=== PATIENT | male | born 1955 | race Caucasian/White ===

== ENCOUNTER 2023-02-22 22:19 | Inpatient (IN) | payer MEDICARE, OTHER ==
[~2023-02-22] VITALS: Ht 167.6 cm; Wt 114.5 kg
--- NOTE | 2023-02-22 22:35 | NUR ---
[facility] PT HAS AMS X3 DAYS. PLACED COMFORTABLY IN BED, VITALS CHECKED.
--- NOTE | 2023-02-22 22:48 | NUR ---
EKG DONE AT BEDSIDE
--- NOTE | 2023-02-22 22:48 | NUR ---
URINE COLLECTED AND SENT TO LAB
--- NOTE | 2023-02-22 22:53 | NUR ---
COVID SWAB COLLECTED AND SENT TO LAB
--- NOTE | 2023-02-22 22:53 | NUR ---
BLOOD WORK COLLECTED AND SENT TO LAB
--- NOTE | 2023-02-22 23:08 | NUR ---
KG=[id number]
--- NOTE | 2023-02-22 23:09 | NUR ---
PT TO CT, ACCOMPANIED BY TECH
[2023-02-22 23:11] LABS: BASOPHILS % (AUTO) 0.5 % (0.0-2.0); EOSINOPHILS % (AUTO) 1.2 % (0.0-6.0); HEMATOCRIT 42 % (39-51); HEMOGLOBIN 13.6 g/dL (13.5-17.5); LYMPHOCYTES # (AUTO) 2.1 K/uL (0.8-4.8); LYMPHOCYTES % (AUTO) 26.5 % (20.0-44.0); MEAN CORPUSCULAR HGB CONC 32 g/dl (31.0-36.0); MEAN CORPUSCULAR VOLUME 89 fL (80-96); MONOCYTES # (AUTO) 0.8 K/uL (0.1-1.30); MONOCYTES % (AUTO) 9.9 % (2.0-12.0); NEUTROPHILS # (AUTO) 4.8 K/uL (1.8-8.9); NEUTROPHILS % (AUTO) 61.9 % (43.0-81.0); PLATELET COUNT (AUTO) 226 K/uL (150-450); RED BLOOD CELL COUNT(AUTO) 4.75 MIL/uL (4.5-6.0); WHITE BLOOD COUNT (AUTO) 7.8 K/uL (4.3-11.0)
--- NOTE | 2023-02-22 23:20 | NUR ---
PT RETURNED FROM CT
[2023-02-22 23:45] LABS: BILIRUBIN,URINE NEGATIVE (NEGATIVE); COLOR,URINE YELLOW (YELLOW); LEUKOCYTE ESTERASE ,URINE 1+ (NEGATIVE); NITRITE, URINE POSITIVE (NEGATIVE); PROTEIN,URINE NEGATIVE (NEGATIVE); UGLUCOSE NEGATIVE (NEGATIVE); UROBILINOGEN,URINE 0.2 EU/dL (0.2)
[2023-02-22 23:52] LABS: BACTERIA,URINE Few /HPF (None Seen); SQUAMOUS EPITHELIAL CELL,UR MODERATE /HPF (None Seen)
[2023-02-22 23:53] LABS: SERUM AMMONIA 19 umol/L (11-32)
[2023-02-22 23:54] LABS: CALCIUM, SERUM 9.1 mg/dL (8.5-10.1); CARBON DIOXIDE 30 mmol/L (21-32); CHLORIDE 101 mmol/L (98-107); GLUCOSE 180 mg/dL (74-106); POTASSIUM 4.3 mmol/L (3.5-5.1); SODIUM SERUM 137 mmol/L (136-145); UREA NITROGEN, BLOOD 11 mg/dL (7-18)
[2023-02-22 23:58] LABS: ACETAMINOPHEN 0 ug/ml (10-30); ALANINE AMINOTRANSFERASE 27 U/L (12-78); ALBUMIN 3.4 g/dL (3.4-5.0); ALCOHOL, BLOOD < 3 mg/dL (0-0); ALKALINE PHOSPHATASE 47 U/L (46-116); ASPARTATE AMINOTRANSFERASE 13 U/L (15-37); BILIRUBIN,DIRECT 0.1 mg/dL (0.0-0.2); BILIRUBIN,TOTAL 0.3 mg/dL (0.2-1.0); TOTAL PROTEIN, SERUM 7.4 g/dL (6.4-8.2)
[2023-02-23] MEDS ORDERED: AZITHROMYCIN 500 MG in IV D5W 250 ML IV ONE ×2
[2023-02-23] MEDS ORDERED: CEFTRIAXONE 1GM BAG (ER ONLY) 1 GM/50 ML PIGGYBACK IV ONE
--- NOTE | 2023-02-23 00:05 | NUR ---
BLOOD CX COLLECTED AND SENT TO LAB
[2023-02-23] MEDS ORDERED: CEFTRIAXONE 1GM BAG (ER ONLY) 50 ML IV ONE (00:19)
[2023-02-23] MEDS ORDERED: AZITHROMYCIN 500 MG VIAL ONE ×2 (00:19→00:42)
[2023-02-23] MEDS ORDERED: ONDANSETRON HCL/PF 4 MG/2 ML VIAL IVP PRN (00:30)
[2023-02-23] MEDS ORDERED: ACETAMINOPHEN 325 MG TABLET PO PRN (00:30)
--- NOTE | 2023-02-23 01:17 | NUR ---
[facility]
--- NOTE | 2023-02-23 03:14 | NUR ---
120 BED 2
[2023-02-23] MEDS ORDERED: ENOXAPARIN SODIUM 40 MG/0.4 ML DISP.SYRIN SQ SCH (03:36)
--- NOTE | 2023-02-23 03:53 | NUR ---
REPORT GIVEN TO NII VALDEZ FOR BRIANA
[2023-02-23 04:00] VITALS: BP 130/76
--- NOTE | 2023-02-23 04:15 | NUR ---
ADMISSION NOTES ADMITTED A 67-YEAR-OLD MAN, TRANSPORTED VIA GURNEY BY 3 ED PERSONNEL. PATIENT IS AAO X2-3, ON ROOM AIR, NO SOB/DISTRESS NOTED. DENIES PAIN AT THIS TIME. ON TELE MONITOR SHOWING SINUS RHYTHM. IV ACCESS ON RAC #20G, S/L, INTACT AND PATENT. KAN CATHETER IN PLACE, DRAINING CLEAR YELLOW URINE. BODY ASSESSMENT DONE, SKIN IS INTACT. BELONGINGS CHECKED AND LIST PLACED ON CHART. VITAL SIGNS FOLLOWS: TEMP 97.6, HR 62, RR 18, O2 SAT 98%, BP 130/76. SAFETY MEASURES IN PLACE: BED LOCKED AND IN LOWEST POSITION, SIDE RAILS UP X3, BED ALARM ON, CALL LIGHT WITHIN REACH.
[2023-02-23] MEDS: IV NS 0.9% 1,000 ML IV PRN (04:30)
--- NOTE | 2023-02-23 06:00 | NUR ---
RN NOTE UNABLE TO OBTAIN CODE STATUS FROM THE PATIENT DUE TO AMS. CALLED [facility] TO OBTAIN PATIENT'S CODE STATUS AND SAID THAT THE PATIENT IS FULL CODE.
--- NOTE | 2023-02-23 06:32 | NUR ---
RN CLOSING NOTES PATIENT IN BED, ASLEEP BUT AROUSABLE. AAO X2-3, ON ROOM AIR, NO SOB/DISTRESS NOTED. DENIES PAIN AT THIS TIME. ON TELE MONITOR SHOWING SINUS RHYTHM. IV ACCESS ON RAC #20G, INTACT AND PATENT, NS RUNNING AT 75ML/HR. KAN CATHETER IN PLACE, DRAINING CLEAR YELLOW URINE, UO IS 1400 ML. SAFETY MEASURES IN PLACE: BED LOCKED AND IN LOWEST POSITION, SIDE RAILS UP X3, BED ALARM ON, CALL LIGHT WITHIN REACH. ALL DUE MEDS GIVEN, ALL NEEDS ATTENDED. WILL ENDORSE TO ONCOMING NURSE FOR BRIANA.
[2023-02-23 07:15] LABS: BASOPHILS % (AUTO) 0.4 % (0.0-2.0); EOSINOPHILS % (AUTO) 1.3 % (0.0-6.0); HEMATOCRIT 41 % (39-51); HEMOGLOBIN 13.8 g/dL (13.5-17.5); LYMPHOCYTES # (AUTO) 1.9 K/uL (0.8-4.8); LYMPHOCYTES % (AUTO) 26.4 % (20.0-44.0); MEAN CORPUSCULAR HGB CONC 34 g/dl (31.0-36.0); MEAN CORPUSCULAR VOLUME 88 fL (80-96); MONOCYTES # (AUTO) 0.6 K/uL (0.1-1.30); MONOCYTES % (AUTO) 8.8 % (2.0-12.0); NEUTROPHILS # (AUTO) 4.5 K/uL (1.8-8.9); NEUTROPHILS % (AUTO) 63.1 % (43.0-81.0); PLATELET COUNT (AUTO) 209 K/uL (150-450); RED BLOOD CELL COUNT(AUTO) 4.66 MIL/uL (4.5-6.0); WHITE BLOOD COUNT (AUTO) 7.2 K/uL (4.3-11.0)
--- NOTE | 2023-02-23 07:29 | NUR ---
LARD REFINER OPENING NOTE PATIENT IN BED, ASLEEP BUT EASILY AROUSABLE. AAO X2-3, ON ROOM AIR, NO SOB/DISTRESS NOTED AT THIS TIME. ON TELE MONITOR SHOWING SINUS RHYTHM 58. IV ACCESS ON RAC #20G, INTACT AND PATENT, NS RUNNING AT 75ML/HR. KAN CATHETER IN PLACE, DRAINING CLEAR YELLOW URINE, . ALL SAFETY MEASURES IN PLACE: BED LOCKED AND IN LOWEST POSITION, SIDE RAILS UP X3, BED ALARM ON, CALL LIGHT WITHIN REACH
[2023-02-23 07:53] LABS: CALCIUM, SERUM 9.3 mg/dL (8.5-10.1); CREATININE 0.9 mg/dL (0.6-1.3); MAGNESIUM 2.1 mg/dL (1.8-2.4); PHOSPHORUS 3.6 mg/dL (2.5-4.9); POTASSIUM 4.6 mmol/L (3.5-5.1)
[2023-02-23 08:00] VITALS: BP 130/74
[2023-02-23] MEDS ORDERED: VANCOMYCIN 1.5 GM in IV D5W 500ml IV ONE (09:00)
[2023-02-23] MEDS ORDERED: CEFEPIME 1 GM in IV D5W 50 ML IV SCH (09:00)
--- NOTE | 2023-02-23 09:41 | NUR ---
RN NOTE NOTIFIED ADEEL BATES THAT PT HAS ALLERGIES TO PENCILLIN, BUT WAS GIVEN ROCEPHIN IN THE ED. ADEEL BATES SAID PT TOLERATED IV MEDICATION AND TO WATCH FOR REACTION. NOTIFIED PHARMACY IF VANOCMYCIN WAS OKAY TO GIVE. PER PHARMACY OKAY TO GIVE
[2023-02-23] MEDS ORDERED: FAMOTIDINE/PF INJ 20 MG/2 ML VIAL IV SCH (11:00)
[2023-02-23] MEDS ORDERED: DIVA-78 PO (13:05)
[2023-02-23] MEDS ORDERED: HYDR28.32 TP (13:05)
[2023-02-23] MEDS ORDERED: SIMV-49 PO (13:05)
[2023-02-23] MEDS ORDERED: AMLO-212 PO (13:05)
[2023-02-23] MEDS ORDERED: CHOL100043 PO (13:05)
[2023-02-23] MEDS ORDERED: CITA20TA16 PO (13:05)
[2023-02-23] MEDS ORDERED: MULT-447 PO (13:05)
[2023-02-23] MEDS ORDERED: MAGN400O6 PO (13:05)
[2023-02-23] MEDS ORDERED: FOLI0.4T6 PO (13:05)
[2023-02-23] MEDS ORDERED: TRAZ-182 PO (13:05)
[2023-02-23] MEDS ORDERED: ASPI-1420 PO (13:05)
[2023-02-23] MEDS: CEFEPIME 2 GM in IV D5W 100 ML IV SCH ×2 (13:06→20:10)
[2023-02-23 16:00] VITALS: BP 117/63
--- NOTE | 2023-02-23 19:30 | NUR ---
VETERINARIAN POULTRY OPENING NOTE RECEIVED PATIENT IN BED, AWAKE, A/O X 2-3, ABLE TO VERBALIZE NEEDS. CURRENTLY ON ROOM AIR, TOLERATING WELL, SATING @ 97%. NO S/SX OF ACUTE RESPI DISTRESS NOTED AT THIS TIME. NO SOB, BREATHING IS EVEN AND UNLABORED. ON TELE MONITOR SHOWING SINUS RHYTHM WITH HR IN 70s. IV ACCESS ON RAC #20G, INTACT AND PATENT, RUNNING NS AT 75ML/HR. KAN CATHETER NOTED, DRAINING CLEAR YELLOW URINE BY GRAVITY. ALL SAFETY MEASURES IN PLACE: BED LOCKED AND IN LOWEST POSITION, SIDE RAILS UP X3, BED ALARM ON, CALL LIGHT WITHIN REACH. WILL CONTINUE TO MONITOR PT.
--- NOTE | 2023-02-23 19:35 | NUR ---
UNDERTAKER HELPER CLOSING NOTE PATIENT IN BED, ASLEEP BUT EASILY AROUSABLE. AAO X2-3, ON ROOM AIR TOLERATING AT 96%. NO SIGNS OF PAIN OR DISCOMFORT NOTED AT THIS TIME. ON TELE MONITOR SHOWING SINUS RHYTHM 58. IV ACCESS ON RAC #20G, INTACT AND PATENT. , NS RUNNING AT 75ML/HR. KAN CATHETER IN PLACE, DRAINING CLEAR YELLOW URINE OUTPUT.. ALL SAFETY MEASURES IN PLACE: BED LOCKED AND IN LOWEST POSITION, SIDE RAILS UP X3, BED ALARM ON, CALL LIGHT WITHIN REACH.ENDORSED TO REPAIRER SHOE STICKS RN FOR CONTUITY OF CARE
[2023-02-23 20:00] VITALS: BP 129/68
[2023-02-23] MEDS: VANCOMYCIN 1.25 GM in IV D5W 250 ML IV SCH (20:44)
--- NOTE | 2023-02-23 21:48 | NUR ---
RN NOTE RECEIVED REPORT FROM LAB FOR BLOOD CX: GRAM POSITIVE COCCI IN CLUSTERS SEEN ON GRAM STAIN. PT CURRENTLY ON VANCO. POLLUTION CONTROL TECHNICIAN ANURADHA NOTIFIED.
[2023-02-23] MEDS ORDERED: AZITHROMYCIN 500 MG in IV D5W 250 ML IV SCH (22:00)
[2023-02-23] MEDS ORDERED: CEFTRIAXONE 1 G in IV D5W 50 ML IV SCH (22:00)
[2023-02-24] VITALS (7 sets, daily range): BP systolic 115–138; BP diastolic 61–93
[2023-02-24] MEDS: IV NS 0.9% 1,000 ML IV PRN ×2 (03:41→19:48)
[2023-02-24] MEDS: CEFEPIME 2 GM in IV D5W 100 ML IV SCH ×3 (04:09→20:12)
--- NOTE | 2023-02-24 06:24 | NUR ---
CLIENT SERVICE REPRESENTATIVE CLOSING NOTE NO SIGNIFICANT CHANGE T/O THE NIGHT. PT IN STABLE CONDITION. ALL DUE MEDS GIVEN. ALL NEEDS MET. TURNED AND REPOSITIONED. WILL ENDORSE TO AM SHIFT NURSE FOR BRIANA.
[2023-02-24 07:04] LABS: BASOPHILS % (AUTO) 0.5 % (0.0-2.0); EOSINOPHILS % (AUTO) 1.7 % (0.0-6.0); HEMATOCRIT 40 % (39-51); HEMOGLOBIN 13.1 g/dL (13.5-17.5); LYMPHOCYTES # (AUTO) 1.5 K/uL (0.8-4.8); LYMPHOCYTES % (AUTO) 19.1 % (20.0-44.0); MEAN CORPUSCULAR HGB CONC 33 g/dl (31.0-36.0); MEAN CORPUSCULAR VOLUME 89 fL (80-96); MONOCYTES # (AUTO) 0.9 K/uL (0.1-1.30); MONOCYTES % (AUTO) 10.9 % (2.0-12.0); NEUTROPHILS # (AUTO) 5.4 K/uL (1.8-8.9); NEUTROPHILS % (AUTO) 67.8 % (43.0-81.0); PLATELET COUNT (AUTO) 197 K/uL (150-450); RED BLOOD CELL COUNT(AUTO) 4.49 MIL/uL (4.5-6.0)
[2023-02-24 07:43] LABS: CALCIUM, SERUM 8.8 mg/dL (8.5-10.1); MAGNESIUM 1.8 mg/dL (1.8-2.4); PHOSPHORUS 3.6 mg/dL (2.5-4.9); POTASSIUM 4.6 mmol/L (3.5-5.1)
--- NOTE | 2023-02-24 07:49 | NUR ---
PATIENT ACCESS REGISTRAR OPENING PATIENT IN BED, ASLEEP BUT EASILY AROUSABLE. AAO X2-3, ON ROOM AIR TOLERATING ABOVE 92%. NO SIGNS OF PAIN OR DISCOMFORT NOTED AT THIS TIME. ON TELE MONITOR SHOWING SINUS RHYTHM 68. IV ACCESS ON RAC #20G, INTACT AND PATENT. , NS RUNNING AT 75ML/HR. KAN CATHETER IN PLACE, DRAINING CLEAR YELLOW URINE OUTPUT.ALL SAFETY MEASURES IN PLACE: BED LOCKED AND IN LOWEST POSITION, SIDE RAILS UP X3, BED ALARM ON, CALL LIGHT WITHIN REACH.
[2023-02-24] MEDS: VANCOMYCIN 1.25 GM in IV D5W 250 ML IV SCH ×2 (08:19→20:38)
[2023-02-24] MEDS: ENOXAPARIN SODIUM 40 MG/0.4 ML DISP.SYRIN SQ SCH (08:28)
[2023-02-24] MEDS ORDERED: ENOXAPARIN SODIUM 40 MG/0.4 ML DISP.SYRIN SQ SCH (09:00)
[2023-02-24] MEDS: DIVALPROEX SODIUM 500 MG TABLET.DR PO SCH ×2 (11:25→16:05)
[2023-02-24] MEDS: CHOLECALCIFEROL 1,000 UNIT TABLET (VIT D3) PO SCH (11:25)
[2023-02-24] MEDS: ASPIRIN EC 81 MG TABLET.DR PO SCH (11:25)
[2023-02-24] MEDS: AMLODIPINE BESYLATE 5 MG TABLET PO SCH (11:25)
[2023-02-24] MEDS: HYDROCORTISONE 1% CREAM 28.35 GM TUBE TP SCH (16:06)
--- NOTE | 2023-02-24 19:00 | NUR ---
NUCLEAR POWERPLANT MECHANIC HELPER CLOSING NOTE PATIENT IN BED, ASLEEP BUT EASILY AROUSABLE. AAO X2-3, ON ROOM AIR TOLERATING AT 97%. NO SIGNS OF PAIN OR DISCOMFORT NOTED AT THIS TIME. ON TELE MONITOR SHOWING SINUS RHYTM 78. IV ACCESS ON RAC #20G, INTACT AND PATENT, NS RUNNING AT 75ML/HR. KAN CATHETER IN PLACE, DRAINING CLEAR YELLOW URINE OUTPUT.PT AMBULATORY WITH STANDYBY ASSISTANCE. ALL SAFETY MEASURES IN PLACE: BED LOCKED AND IN LOWEST POSITION, SIDE RAILS UP X3, BED ALARM ON, CALL LIGHT WITHIN REACH.ENDORSED TO SUPERVISOR PAINT ROLLER COVERS RN FOR CONTUITY OF CARE
--- NOTE | 2023-02-24 19:30 | NUR ---
GREENHOUSE WORKER OPENING NOTE RECEIVED PATIENT IN BED, AWAKE, A/O X 3, ABLE TO VERBALIZE NEEDS. CURRENTLY ON ROOM AIR, TOLERATING WELL, SATING @ 98%. NO S/SX OF ACUTE RESPI DISTRESS NOTED AT THIS TIME. NO SOB, BREATHING IS EVEN AND UNLABORED. ON TELE MONITOR SHOWING SINUS RHYTHM WITH HR IN 70s. IV ACCESS ON RAC #20G, INTACT AND PATENT, RUNNING NS AT 75ML/HR. KAN CATHETER NOTED, DRAINING YELLOW URINE BY GRAVITY. ALL SAFETY MEASURES IN PLACE: BED LOCKED AND IN LOWEST POSITION, SIDE RAILS UP X3, BED ALARM ON, CALL LIGHT WITHIN REACH. WILL CONTINUE TO MONITOR PT.
[2023-02-24] MEDS: SIMVASTATIN 20 MG TABLET PO SCH (21:20)
[2023-02-24] MEDS: TRAZODONE 50 MG TABLET PO SCH (21:20)
[2023-02-25] VITALS: BP 122/68
[2023-02-25 04:00] VITALS: BP 140/73
[2023-02-25] MEDS: CEFEPIME 2 GM in IV D5W 100 ML IV SCH ×3 (04:23→20:03)
[2023-02-25 06:46] LABS: BASOPHILS # (AUTO) 0.1 K/uL (0.0-0.2); BASOPHILS % (AUTO) 0.6 % (0.0-2.0); EOSINOPHILS % (AUTO) 1.5 % (0.0-6.0); HEMATOCRIT 43 % (39-51); HEMOGLOBIN 13.8 g/dL (13.5-17.5); LYMPHOCYTES # (AUTO) 1.7 K/uL (0.8-4.8); LYMPHOCYTES % (AUTO) 19.7 % (20.0-44.0); MEAN CORPUSCULAR HGB CONC 32 g/dl (31.0-36.0); MEAN CORPUSCULAR VOLUME 91 fL (80-96); MONOCYTES # (AUTO) 1.1 K/uL (0.1-1.30); MONOCYTES % (AUTO) 12.1 % (2.0-12.0); NEUTROPHILS # (AUTO) 5.7 K/uL (1.8-8.9); NEUTROPHILS % (AUTO) 66.1 % (43.0-81.0); PLATELET COUNT (AUTO) 176 K/uL (150-450); RED BLOOD CELL COUNT(AUTO) 4.72 MIL/uL (4.5-6.0); WHITE BLOOD COUNT (AUTO) 8.7 K/uL (4.3-11.0)
--- NOTE | 2023-02-25 07:18 | NUR ---
EYELET PUNCH OPERATOR OPENING NOTES RECEIVED PATIENT SLEEPING IN BED, ON ROOM AIR, NO S/S OF RESPIRATORY DISTRESS. A/Ox2-3, ABLE TO MAKE NEEDS KNOWN. ON TELE MONITORING SHOWING SINUS RHYTHM, HR 68. NO S/S OF CARDIAC DISTRESS. IV ACCESS RAC #18 RUNNING NS @75 ML/HR. INTACT AND PATENT. PATIENT HAS KAN CATH DRAINING YELLOW URINE, AMB WITH ASSIST. SKIN INTACT. SAFETY MEASURES IN PLACE: BED LOCKED AND IN LOWEST POSITION, HOB ELEVATED, CALL LIGHT WITHIN REACH, SIDE RAILS UPx2. WILL CONTINUE TO MONITOR.
[2023-02-25 07:20] LABS: CALCIUM, SERUM 9.1 mg/dL (8.5-10.1); CREATININE 0.8 mg/dL (0.6-1.3); PHOSPHORUS 3.8 mg/dL (2.5-4.9); POTASSIUM 4.8 mmol/L (3.5-5.1)
[2023-02-25 08:00] VITALS: BP 123/79
[2023-02-25] MEDS: CHOLECALCIFEROL 1,000 UNIT TABLET (VIT D3) PO SCH (09:09)
[2023-02-25] MEDS: AMLODIPINE BESYLATE 5 MG TABLET PO SCH (09:09)
[2023-02-25] MEDS: DIVALPROEX SODIUM 500 MG TABLET.DR PO SCH ×2 (09:09→16:15)
[2023-02-25] MEDS: VANCOMYCIN 1.25 GM in IV D5W 250 ML IV SCH ×2 (09:09→20:48)
[2023-02-25] MEDS: CITALOPRAM HYDROBROMIDE 20 MG TABLET PO SCH (09:09)
[2023-02-25] MEDS: ASPIRIN EC 81 MG TABLET.DR PO SCH (09:09)
[2023-02-25] MEDS: HYDROCORTISONE 1% CREAM 28.35 GM TUBE TP SCH ×2 (09:18→16:17)
[2023-02-25] MEDS: ENOXAPARIN SODIUM 40 MG/0.4 ML DISP.SYRIN SQ SCH (09:22)
[2023-02-25] MEDS: MULTIVIT W/MINERALS 1 TAB TABLET PO SCH (10:39)
[2023-02-25] MEDS: FOLIC ACID 1 MG TABLET PO SCH (10:39)
[2023-02-25] MEDS: IV NS 0.9% 1,000 ML IV PRN (11:32)
[2023-02-25 12:00] VITALS: BP 127/67
[2023-02-25 16:00] VITALS: BP 122/62
--- NOTE | 2023-02-25 18:51 | NUR ---
ENVIRONMENTAL TECHNICAL OFFICER CLOSING NOTES PATIENT SLEEPING IN BED, STABLE ON ROOM AIR, NO S/S OF RESPIRATORY DISTRESS. A/Ox2-3, ABLE TO MAKE NEEDS KNOWN. ON TELE MONITORING SHOWING SINUS RHYTHM, HR 72. NO S/S OF CARDIAC DISTRESS. IV ACCESS RAC #18 RUNNING NS @75 ML/HR. INTACT AND PATENT. PATIENT HAS KAN CATH DRAINING YELLOW URINE, AMB WITH ASSIST. SKIN INTACT. SAFETY MEASURES MAINTAINED: BED LOCKED AND IN LOWEST POSITION, HOB ELEVATED, CALL LIGHT WITHIN REACH, SIDE RAILS UPx2. WILL ENDORSE TO NEXT SHIFT ANY BRIANA.
--- NOTE | 2023-02-25 19:20 | NUR ---
BUDGET CONSULTANT OPENING NOTE PATIENT IS SLEEPING IN BED, EASILY BEING AROUSED. HE IS ALERT AND ORIENTED, AO X 2-3. HE IS ON ROOM AIR, TOLERATED WELL. NO S/S OF RESPIRATORY DISTRESS OR SOB. PT IS ABLE TO MAKE NEEDS KNOWN. HE IS ON TELE MONITORING; HIS HEART RHYTHM IS SINUS RHYTHM WITH ARRHYTHMIA; HIS HEART RATE IS AT 60S. IV ACCESS IS AT HIS R AC, #18G, RUNNING NS @75 ML/HR. IV SITE IS INTACT AND PATENT. PATIENT HAS KAN CATH DRAINING YELLOW URINE FREELY. PT DENIES OF HAVING PAIN AT THIS MOMENT. SAFETY MEASURES ARE IN PLACED: BED LOCKED AND IN LOWEST POSITION; TABLE AND CALL LIGHT ARE WITHIN REACH; SIDE RAILS UP x 2. WILL CONTINUE MONITORING THE PT AND PROVIDE THE CARE PT NEEDS.
[2023-02-25 20:00] VITALS: BP 126/72
[2023-02-25] MEDS: TRAZODONE 50 MG TABLET PO SCH (22:51)
[2023-02-25] MEDS: SIMVASTATIN 20 MG TABLET PO SCH (22:51)
[2023-02-26] VITALS: BP 118/76
[2023-02-26 04:00] VITALS: BP 134/74
[2023-02-26] MEDS: CEFEPIME 2 GM in IV D5W 100 ML IV SCH ×3 (04:14→22:06)
[2023-02-26] MEDS: IV NS 0.9% 1,000 ML IV PRN (04:14)
--- NOTE | 2023-02-26 06:39 | NUR ---
ELECTRONIC DATA INTERCHANGE SPECIALIST CLOSING NOTE PATIENT IS SLEEPING IN BED, EASILY BEING AROUSED. HE IS ALERT AND ORIENTED, AO X 2-3. HE IS ON ROOM AIR, TOLERATED WELL. NO S/S OF RESPIRATORY DISTRESS OR SOB. PT IS ABLE TO MAKE NEEDS KNOWN. HE IS ON TELE MONITORING; HIS HEART RHYTHM IS SINUS RHYTHM WITH ARRHYTHMIA; HIS HEART RATE IS AT 60S. IV ACCESS IS AT HIS R AC, #18G, RUNNING NS @75 ML/HR. IV SITE IS INTACT AND PATENT. PATIENT HAS KAN CATH DRAINING YELLOW URINE FREELY. PT DENIES OF HAVING PAIN AT THIS MOMENT. SAFETY MEASURES ARE IN PLACED: BED LOCKED AND IN LOWEST POSITION; TABLE AND CALL LIGHT ARE WITHIN REACH; SIDE RAILS UP x 2. WILL ENDORSE NEXT SHIFT NURSE FOR CONTINUING PT CARE.
[2023-02-26 07:09] LABS: BASOPHILS % (AUTO) 0.5 % (0.0-2.0); EOSINOPHILS % (AUTO) 1.8 % (0.0-6.0); HEMATOCRIT 41 % (39-51); HEMOGLOBIN 13.4 g/dL (13.5-17.5); LYMPHOCYTES # (AUTO) 1.4 K/uL (0.8-4.8); LYMPHOCYTES % (AUTO) 18.2 % (20.0-44.0); MEAN CORPUSCULAR HGB CONC 33 g/dl (31.0-36.0); MEAN CORPUSCULAR VOLUME 90 fL (80-96); MONOCYTES # (AUTO) 0.8 K/uL (0.1-1.30); MONOCYTES % (AUTO) 9.7 % (2.0-12.0); NEUTROPHILS # (AUTO) 5.5 K/uL (1.8-8.9); NEUTROPHILS % (AUTO) 69.8 % (43.0-81.0); PLATELET COUNT (AUTO) 200 K/uL (150-450); RED BLOOD CELL COUNT(AUTO) 4.57 MIL/uL (4.5-6.0); WHITE BLOOD COUNT (AUTO) 7.8 K/uL (4.3-11.0)
--- NOTE | 2023-02-26 07:30 | NUR ---
PT RECEIVED RESTING COMFORTABLY IN BED. NO S/S OR C/O PAIN OR DISTRESS NOTED. SIDERAILS UP X2, CALL LIGHT LEFT WITHIN REACH. WILL CONTINUE PLAN OF CARE.
[2023-02-26 07:31] LABS: CALCIUM, SERUM 9.1 mg/dL (8.5-10.1); CREATININE 0.8 mg/dL (0.6-1.3); PHOSPHORUS 3.4 mg/dL (2.5-4.9); POTASSIUM 4.3 mmol/L (3.5-5.1)
[2023-02-26 08:00] VITALS: BP 133/70
[2023-02-26] MEDS: DIVALPROEX SODIUM 500 MG TABLET.DR PO SCH ×2 (09:20→16:22)
[2023-02-26] MEDS: CHOLECALCIFEROL 1,000 UNIT TABLET (VIT D3) PO SCH (09:20)
[2023-02-26] MEDS: VANCOMYCIN 1.25 GM in IV D5W 250 ML IV SCH ×2 (09:20→22:07)
[2023-02-26] MEDS: ASPIRIN EC 81 MG TABLET.DR PO SCH (09:20)
[2023-02-26] MEDS: FOLIC ACID 1 MG TABLET PO SCH (09:20)
[2023-02-26] MEDS: MULTIVIT W/MINERALS 1 TAB TABLET PO SCH (09:20)
[2023-02-26] MEDS: CITALOPRAM HYDROBROMIDE 20 MG TABLET PO SCH (09:20)
[2023-02-26] MEDS: AMLODIPINE BESYLATE 5 MG TABLET PO SCH (09:21)
[2023-02-26] MEDS: ENOXAPARIN SODIUM 40 MG/0.4 ML DISP.SYRIN SQ SCH (09:58)
[2023-02-26] MEDS: HYDROCORTISONE 1% CREAM 28.35 GM TUBE TP SCH ×2 (10:01→16:27)
[2023-02-26 12:00] VITALS: BP 131/75
[2023-02-26 16:00] VITALS: BP 122/66
--- NOTE | 2023-02-26 18:45 | NUR ---
CHANGE OF SHIFT REPORT PATIENT RESTING COMFORTABLY IN BED. NO S/S OR C/O PAIN OR DISTRESS NOTED. SIDE RAILS UP X2, CALL LIGHT LEFT WITHIN REACH. PT KEPT CLEAN, DRY, AND COMFORTABLE. NO SIGNIFICANT CHANGES SINCE PREVIOUS SHIFT. WILL GIVE REPORT TO TYRA VALDEZ.
--- NOTE | 2023-02-26 19:10 | NUR ---
PRODUCT SUPPORT MANAGER opening note Received pt resting in bed, awake, in stable condition, breathing even and unlabored, denies any pain at this time, will continue to monitor
[2023-02-26 20:00] VITALS: BP 123/67
[2023-02-26] MEDS: TRAZODONE 50 MG TABLET PO SCH (22:21)
[2023-02-26] MEDS: SIMVASTATIN 20 MG TABLET PO SCH (22:21)
[2023-02-27] VITALS: BP 126/62
[2023-02-27] MEDS: IV NS 0.9% 1,000 ML IV PRN (03:30)
[2023-02-27 04:00] VITALS: BP 130/76
[2023-02-27] MEDS: CEFEPIME 2 GM in IV D5W 100 ML IV SCH ×2 (05:05→14:24)
--- NOTE | 2023-02-27 05:30 | NUR ---
HOUSING RELOCATION note Swabbed pt for MRSA
--- NOTE | 2023-02-27 06:38 | NUR ---
LAND APPRAISER closing note pt resting in bed, awake, in stable condition, breathing even and unlabored, 0 c/o pain, all due meds given per MD orders, tolerated well, all basic needs met and anticipated, bed bath rendered well, all safety measures in place, will continue to monitor
[2023-02-27 07:40] LABS: BASOPHILS % (AUTO) 0.4 % (0.0-2.0); EOSINOPHILS % (AUTO) 1.7 % (0.0-6.0); HEMATOCRIT 41 % (39-51); HEMOGLOBIN 13.1 g/dL (13.5-17.5); LYMPHOCYTES # (AUTO) 1.5 K/uL (0.8-4.8); LYMPHOCYTES % (AUTO) 18.6 % (20.0-44.0); MEAN CORPUSCULAR HGB CONC 32 g/dl (31.0-36.0); MEAN CORPUSCULAR VOLUME 89 fL (80-96); MONOCYTES # (AUTO) 0.9 K/uL (0.1-1.30); MONOCYTES % (AUTO) 11.5 % (2.0-12.0); NEUTROPHILS # (AUTO) 5.4 K/uL (1.8-8.9); NEUTROPHILS % (AUTO) 67.8 % (43.0-81.0); PLATELET COUNT (AUTO) 204 K/uL (150-450); RED BLOOD CELL COUNT(AUTO) 4.56 MIL/uL (4.5-6.0)
--- NOTE | 2023-02-27 07:40 | NUR ---
BUILDING MAINTENANCE MECHANIC OPENING NOTE PATIENT A/A/OX4, ON 02 SAT IN ROOM AIR 97% NO S/S OF RESPIRATORY DISTRESS NOTED. PATIENT DENIES PAIN AND SOB. SL AT THE LEFT ARM IS PAINFUL AND MILD REDNESS NOTED. IV ACCESS REMOVED, CATHETER TIP INTACT. PRESSURE DRESSING APPLIED AND ICE PACK APPLIED TO IV SITE. SAFETY MEASURES IN PLACE, BED LOCKED TO THE LOWEST POSITION. SIDE RAILS UP X2. CALL LIGHT, TABLE WITHIN REACH. PATIENT IS ON VANCOMYCIN IV, I WILL RE-START ANOTHER IV SITE. PATIENT WAS INFORMED REGARDING IV TO STAR TODAY. CONT. TO MONITOR.
[2023-02-27 08:00] VITALS: BP 130/76
[2023-02-27 08:05] LABS: CALCIUM, SERUM 9.3 mg/dL (8.5-10.1); CREATININE 0.9 mg/dL (0.6-1.3); MAGNESIUM 1.9 mg/dL (1.8-2.4); PHOSPHORUS 3.3 mg/dL (2.5-4.9); POTASSIUM 4.1 mmol/L (3.5-5.1)
[2023-02-27] MEDS: HYDROCORTISONE 1% CREAM 28.35 GM TUBE TP SCH (09:00)
--- NOTE | 2023-02-27 09:00 | NUR ---
DIRECTOR OF MATH NOTE IV ACCESS NOT AVAILABLE AT THIS TIME. TWO NURSES ATTEMPTED TO START A NEW ONE, BUT WAS NOT POSSIBLE TO START. DR. STONE NOTIFIED AND HE STATED THE PATIENT MAY BE DISCHARGE. SOOM CHARGE NURSE WAS NOTIFIED. CONT. TO MONITOR.
[2023-02-27] MEDS: MULTIVIT W/MINERALS 1 TAB TABLET PO SCH (09:31)
[2023-02-27] MEDS: FOLIC ACID 1 MG TABLET PO SCH (09:31)
[2023-02-27] MEDS: CHOLECALCIFEROL 1,000 UNIT TABLET (VIT D3) PO SCH (09:31)
[2023-02-27] MEDS: CITALOPRAM HYDROBROMIDE 20 MG TABLET PO SCH (09:32)
[2023-02-27] MEDS: AMLODIPINE BESYLATE 5 MG TABLET PO SCH (09:32)
[2023-02-27] MEDS: DIVALPROEX SODIUM 500 MG TABLET.DR PO SCH ×2 (09:36→18:34)
[2023-02-27] MEDS: ASPIRIN EC 81 MG TABLET.DR PO SCH (09:36)
[2023-02-27] MEDS: ENOXAPARIN SODIUM 40 MG/0.4 ML DISP.SYRIN SQ SCH (10:02)
--- NOTE | 2023-02-27 11:00 | NUR ---
OUTSIDE CUTTER HAND NOTE DR. STONE STATED THE PATIENT NEED AN IV ACCESS TO CONTINUE IV ANTIBIOTICS AT HIS NEW PLACE UPON DISCHARGED. DR. STONE STARTED MID-LINE IV ACCESS TO RUE #20G. DR. STONE EXPLAINED TO PATIENT PLAN OF CARE AND PATIENT VERBALIZED UNDERSTANDING INFORMATION.
[2023-02-27] MEDS ORDERED: VANC1.2526 IV (11:17)
[2023-02-27] MEDS ORDERED: CEFE2FRO IV (11:17)
[2023-02-27] MEDS: VANCOMYCIN 1.25 GM in IV D5W 250 ML IV SCH (11:42)
--- NOTE | 2023-02-27 11:42 | NUR ---
SENIOR GEOLOGIST NOTE VANCOMYCIN DOSE IV GIVEN BY RN DIRECTED BY .
[2023-02-27 12:00] VITALS: BP 130/76
--- NOTE | 2023-02-27 12:00 | NUR ---
PACKAGE CENTER SUPERVISOR NOTE PATIENT HAS TWO IV ACCESS TO LIO AND CONG. PATIENT WILL CONTINUE ON IV ANTIBIOTICS AT [facility] .
--- NOTE | 2023-02-27 16:00 | NUR ---
ANALYTICS MANAGER NOTE PATIENT IS GOING BACK TO [facility] AT 1800 VIA AMBULANCE, COMMUNICATIONS WRITER MADE ARRANGEMENT FOR RN TO ADMINISTER IV ANTIBIOTICS. VANCOMYCIN AND CEFEPIME FOR 3 MORE DAYS. REPORT GIVEN TO BLAIR . PATIENT INFORMED REGARDING DISCHARGE DIRECTED BY MD. PATIENT VERBALIZED UNDERSTANDING INFORMATION.
[2023-02-27 16:21] VITALS: BP 154/65
--- NOTE | 2023-02-27 18:10 | NUR ---
BUILDING INSULATION INSTALLER DISCHARGE NOTE PATIENT IS GOING BACK TO THE SAME PLACE THAT HE CAME FROM [facility], VIA AMBULANCE. PATIENT A/A/OX4. O2 SAT IN ROOM AIR 97%, DENIES PAIN, DENIES SOB. LEFT AND RIGHT UPPER ARM MID-LINE IV ACCESS IN PLACE INTACT, PATIENT WILL CONTINUE IV ANTIBIOTICS FOR 3 MORE DAYS AT HIS FACILITY. F/C IN PLACE DRAINING CLEAR JANICE URINE. PATIENT INFORMED REGARDING PLAN OF CARE. PATIENT VERBALIZED UNDERSTANDING INFORMATION. REPORT GIVEN TO THE FACILITY TO A NURSE MUNOZ
== END 2023-02-27 18:50 | DRG 193 ==
LOC: ER 22:21 → TELE1 02-23 03:21
PROVIDERS: ADMIT Nurse Practitioner Acute Care; ATTEND Nurse Practitioner Family
PROC: 05HB33Z Insertion of Infusion Device into Right Basilic Vein, Percutaneous Approach (ICD-10-PCS; principal; 2023-02-27)
PROC: 05HF33Z Insertion of Infusion Device into Left Cephalic Vein, Percutaneous Approach (ICD-10-PCS; 2023-02-27)
DX: J15.9 Unspecified bacterial pneumonia (principal); G92.8 Other toxic encephalopathy; G93.41 Metabolic encephalopathy; N39.0 Urinary tract infection, site not specified; D68.59 Other primary thrombophilia; Z68.41 Body mass index [BMI] 40.0-44.9, adult; J98.11 Atelectasis; I12.9 Hypertensive chronic kidney disease with stage 1 through stage 4 chronic kidney disease, or unspecified chronic kidney disease; N18.30 Chronic kidney disease, stage 3 unspecified; Z20.822 Contact with and (suspected) exposure to COVID-19; Z87.820 Personal history of traumatic brain injury; G40.909 Epilepsy, unspecified, not intractable, without status epilepticus; F32.9 Major depressive disorder, single episode, unspecified; E78.5 Hyperlipidemia, unspecified; D64.9 Anemia, unspecified; Z87.19 Personal history of other diseases of the digestive system; Z88.0 Allergy status to penicillin; Z88.5 Allergy status to narcotic agent; Z88.8 Allergy status to other drugs, medicaments and biological substances; B96.89 Other specified bacterial agents as the cause of diseases classified elsewhere; G47.00 Insomnia, unspecified; E66.01 Morbid (severe) obesity due to excess calories; E78.00 Pure hypercholesterolemia, unspecified; K80.20 Calculus of gallbladder without cholecystitis without obstruction; Y95 Nosocomial condition; R91.1 Solitary pulmonary nodule
CPT/HCPCS: 36415; 70450-TC; 71045-TC; 71250-TC; 80048-TC; 80061-TC; 80076-TC; 80202-TC; 81001; 82140-TC; 82962-TC; 83605-TC; 83735-TC; 84100-TC; 84484-TC; 85025-TC; 85730-TC; 86480; 87040-TC; 87081-TC; 87086-TC; 92526; 92611-TC; 97116-TC; 97530-TC; A4223; C9803; G0378; G0480; J0456; J0692; J0696; J1650; J3370; J7030; J7060